=== PATIENT | male | born 1990 | race Caucasian/White ===

== ENCOUNTER 2017-01-02 18:39 | Emergency (ER) | payer OTHER ==
[~2017-01-02] VITALS: Ht 177.8 cm; Wt 109.5 kg
[2017-01-02] MEDS ORDERED: MOTRIN600 MG PO (20:27)
[2017-01-02] MEDS ORDERED: SKELAXIN800 MG PO (20:27)
[2017-01-02 21:09] VITALS: BP 132/88
== END 2017-01-02 21:10 | disposition home or self-care (01) ==
LOC: EME 18:39
DX: S39.012A Strain of muscle, fascia and tendon of lower back, initial encounter (principal); S16.1XXA Strain of muscle, fascia and tendon at neck level, initial encounter; S90.31XA Contusion of right foot, initial encounter; V44.5XXA Car driver injured in collision with heavy transport vehicle or bus in traffic accident, initial encounter; F17.200 Nicotine dependence, unspecified, uncomplicated
CPT/HCPCS: 73630; 99281; 99284

== ENCOUNTER 2017-02-06 15:04 | Emergency (ER) | payer OTHER ==
[~2017-02-06] VITALS: Ht 177.8 cm; Wt 109.7 kg
[~2017-02-06 15:04] MED LIST: MOTRIN600 MG PO; SKELAXIN800 MG PO
[2017-02-06] MEDS ORDERED: NORCO 5/3251 TABLET PO (16:28)
[2017-02-06] MEDS ORDERED: NAPROSYN500 MG PO (16:28)
[2017-02-06 16:47] VITALS: BP 124/72
== END 2017-02-06 16:50 | disposition home or self-care (01) ==
LOC: EME 15:04
DX: S46.001A Unspecified injury of muscle(s) and tendon(s) of the rotator cuff of right shoulder, initial encounter (principal); V49.40XD Driver injured in collision with unspecified motor vehicles in traffic accident, subsequent encounter; Z88.1 Allergy status to other antibiotic agents
CPT/HCPCS: 73030; 99281; 99283